=== PATIENT | female | born 1960 | race Caucasian/White ===

== ENCOUNTER 2016-08-31 05:57 | Day surgery (SDC) | payer OTHER ==
[2016-08-31] MEDS ORDERED: Lactated Ringers 1,000 ML IV SCH (06:30)
[2016-08-31] MEDS ORDERED: Versed 2 MG/2 ML Injection IV ONE (08:00)
[2016-08-31] MEDS ORDERED: Lactated Ringers 1,000 ML IV ONE (08:24)
--- NOTE | 2016-08-31 09:16 | OP ---
SURGERY DATE/TIME: 08/31/2016 0755 PREOPERATIVE DIAGNOSIS: History of colon polyps. POSTOPERATIVE DIAGNOSIS: Normal colon. PROCEDURE: Colonoscopy. SURGEON: Dewayne Thakkar M.D. ANESTHESIA: MAC by Patrick Garrett CRNA. ESTIMATED BLOOD LOSS: None. SPECIMENS: None. DESCRIPTION OF PROCEDURE: After informed written consent was obtained, the patient was taken to the endoscopy suite. She underwent monitored anesthesia and a digital rectal exam showed normal sphincter tone and no internal lesions. The scope was inserted into the rectum and sequentially the entire colonic mucosa was traversed. The level of cecum was reached and verified with direct visualization of ileocecal valve. Upon withdrawal careful mucosal inspection revealed no obvious abnormalities. Prior to withdrawal retroflexion was performed and was within normal limits. The scope was removed and the patient was transferred to the recovery room in excellent condition.
[2016-08-31 09:27] VITALS: O2SAT 99
[2016-08-31 09:30] VITALS: BP 130/70; PULSE 76
[2016-08-31] MEDS ORDERED: DIPRIVAN 200 MG/20 ML IV ONE (10:00)
== END 2016-08-31 09:45 | disposition home or self-care (01) ==
LOC: SDC 05:57
PROVIDERS: ATTEND Family Medicine
PROC: 0DJD8ZZ Inspection of Lower Intestinal Tract, Via Natural or Artificial Opening Endoscopic (ICD-10-PCS; principal; 2016-08-31)
DX: Z86.010 Personal history of colon polyps (principal)
CPT/HCPCS: 00810; J2250; J2704

== ENCOUNTER 2021-06-17 06:17 | Day surgery (SDC) | payer OTHER ==
[2021-06-17] MEDS ORDERED: Lactated Ringers 1,000 ML IV SCH (06:30)
[2021-06-17] MEDS ORDERED: Versed 2 MG/2 ML Injection ONE (08:01)
[2021-06-17] MEDS ORDERED: DIPRIVAN 200 MG/20 ML IV ONE ×2 (08:01→08:22)
[2021-06-17] MEDS ORDERED: Lactated Ringers 1,000 ML IV ONE (08:13)
[2021-06-17 09:11] VITALS: PULSE 80; O2SAT 86
[2021-06-17 09:15] VITALS: BP 115/89
--- NOTE | 2021-06-17 11:45 | OP ---
SURGERY DATE/TIME: 06/17/2021 0811 PREOPERATIVE DIAGNOSIS: Screening colonoscopy. POSTOPERATIVE DIAGNOSES: 1) Diverticulosis. 2) Mild internal hemorrhoids. PROCEDURE: Colonoscopy. SURGEON: Dewayne Thakkar M.D. ANESTHESIA: MAC by Patrick Garrett CRNA. ESTIMATED BLOOD LOSS: None. SPECIMENS: None. DESCRIPTION OF PROCEDURE: After informed written consent was obtained, the patient was taken to the endoscopy suite. She was placed in the left lateral decubitus position and anesthesia was titrated to desired level of consciousness. Digital rectal exam showed normal sphincter tone and no internal lesions. The scope was inserted into the rectum and sequentially the entire colonic mucosa was traversed. The level of cecum was reached and verified with direct visualization of the ileocecal valve. Upon withdrawal careful mucosal inspection revealed scattered diverticula but no other mucosal abnormalities. Prep was noted to be fair. Prior to withdrawal retroflexion showed mild internal hemorrhoids and no other lesions. The scope was removed. The patient was transferred to the recovery room in good condition.
== END 2021-06-17 09:05 | disposition home or self-care (01) ==
LOC: SDC 06:17
PROVIDERS: ATTEND Family Medicine
DX: Z12.11 Encounter for screening for malignant neoplasm of colon (principal); K57.30 Diverticulosis of large intestine without perforation or abscess without bleeding; K64.8 Other hemorrhoids
CPT/HCPCS: J2250; J2704

== ENCOUNTER 2022-03-24 20:29 | Emergency (ER) | payer BC, OTHER ==
--- NOTE | 2022-03-24 20:53 | ERPHSYRPT ---
- History of Present Illness Time Seen by Provider: 03/24/22 20:50 Source: patient Exam Limitations: no limitations Patient Subjective Stated Complaint: pt states I just got back from [employer] and had this terrible headache. The pain went down my neck. I check my blood pressure and it was 160 over something. Triage Nursing Assessment: pt ambulated into the er; pt is axo x4; c/o hypertension; pt states 3/10 pain to head that radiates down to neck and shoulders; no respiratory distress present; pupils 3 mm and PERRL; hypertensive; skin PDW Physician History: This is a 61-year-old white female who has a history of hypertension hypothyroidism and presents to the emergency department with a headache and elevated blood pressure at home. Patient states that she returned home from [facility] and had a forehead headache which soon worsened and traveled posteriorly and down her neck into her shoulders. She did not suffer any traumatic head injury. She took her blood pressure and the systolic blood pressure was in the 160s. The patient's pain was not resolving so she was brought to the emergency department where her initial systolic blood pressure was 158.'s patient did take some Tylenol at home and she states now that she is here and took her Tylenol, her headache is significantly improved but not com pletely resolved yet as she does not feel the pain in the neck and shoulders like she did earlier. She denies chest pain although she does state that in the last few weeks she has had intermittent mild tightness that resolved on its own in her chest. It was nonradiating and anterior on both sides of the chest. She has no shortness of breath. She has no abdominal pain. She has not had any fevers Timing/Duration: today Head Pain Location: frontal, occipital Severity of Pain-Max: moderate Severity of Pain-Current: none Recent Head Trauma: no recent headache/trauma Modifying Factors: Worsens With: exposure to light, movement, noise, position Associated Symptoms: denies symptoms Previous symptoms: no prior history Allergies/Adverse Reactions: Penicillins Allergy (Verified 03/24/22 20:38) Sulfa (Sulfonamide Antibiotics) Allergy (Verified 03/24/22 20:38) Home Medications: Levothyroxine Sodium 25 Mcg [Synthroid 25 Mcg] 25 mcg PO DAILY 11/19/13 [History] Beta-Carotene(A) W-C & E/Min [Ocuvite Tablet] 1 tab PO DAILY 06/10/21 [History] Lisinopril 5 mg [Zestril 5 MG] 5 mg PO DAILY 06/10/21 [History] Hx Tetanus, Diphtheria Vaccination/Date Given: Yes Hx Influenza Vaccination/Date Given: Yes Hx Pneumococcal Vaccination/Date Given: No Travel Risk - International Travel Have you traveled outside of the country in past 3 weeks: No - Coronavirus Screening Are you exhibiting any of the following symptoms?: No Close contact with a COVID-19 positive Pt in past 14-21 Days: No - Vaccine Status Have you recieved a Covid-19 vaccination: Yes [employer]: Moderna - Vaccination Dates Date of 2cond Vaccination (if applicable): 2019 - Review of Systems Constitutional: No Symptoms Eyes: No Symptoms Ears, Nose, & Throat: No Symptoms Respiratory: No Symptoms Cardiac: Chest Pain (Described as mild tightness that is been intermittent but does not have it at this time) Genitourinary Symptoms: No Symptoms Musculoskeletal: No Symptoms Skin: No Symptoms Neurological: Headache Psychological: No Symptoms Endocrine: No Symptoms Hematologic/Lymphatic: No Symptoms Immunological/Allergic: No Symptoms All Other Systems: Reviewed and Negative - Past Medical History Pertinent Past Medical History: Yes Neurological History: No Pertinent History ENT History: No Pertinent History Cardiac History: Hypertension Respiratory History: No Pertinent History Endocrine Medical History: Hypothyroidism Musculoskeletal History: Osteoarthritis GI Medical History: Diverticulitis, GERD History: No Pertinent History Psycho-Social History: No Pertinent History Female Reproductive Disorders: No Pertinent History Other Medical History: VACCINATED FOR COVID. 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 SX HX: HYSTERECTOMY, BREAST TUMORS REMOVED - Past Surgical History Past Surgical History: Yes Neuro Surgical History: No Pertinent History Cardiac: No Pertinent History Respiratory: No Pertinent History Gastrointestinal: No Pertinent History Genitourinary: No Pertinent History Musculoskeletal: No Pertinent History Female Surgical History: Hysterectomy, Other Other Surgical History: TONSILS, 3 BREAST TUMORS REMOVED. D&C, HALF OF THYROID REMOVED.right breast lumpectomy times 3 - Social History Smoking Status: Never smoker Exposure to second hand smoke: No Drug Use: none Patient Lives Alone: No - Nursing Vital Signs Nursing Vital Signs: Initial Vital Signs Temperature 98.4 F 02/02/23 20:39 Pulse Rate 77 03/24/22 20:39 Respiratory Rate 12 03/24/22 20:39 Blood Pressure 150/86 03/24/22 20:39 O2 Sat by Pulse Oximetry 100 03/24/22 20:39 Pain Scale Pain Intensity 0 - Physical Exam General Appearance: no apparent distress, alert, anxiety Eye Exam: PERRL/EOMI, eyes nml inspection Ears, Nose, Throat Exam: normal ENT inspection, moist mucous membranes Neck Exam: normal inspection, non-tender, supple, full range of motion Respiratory Exam: normal breath sounds, lungs clear, airway intact, No chest tenderness, No respiratory distress Cardiovascular Exam: regular rate/rhythm, normal heart sounds, normal peripheral pulses Gastrointestinal/Abdominal Exam: soft, normal bowel sounds, No tenderness Back Exam: normal inspection, normal range of motion, No CVA tenderness, No vertebral tenderness Mental Status Exam: alert, oriented x 3, 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 There is no evidence of any acute ischemic changes on today's EKG.) Ordered Tests: Active Orders 24 hr Category Date Time Status Fruit Packer Face And Fill STAT Care 03/24/22 20:55 Active EKG-ER Only STAT Care 03/24/22 20:56 Active IV Insertion STAT Care 03/24/22 20:54 Active Pulse Oximetry (ED) STAT Care 03/24/22 20:54 Active HEAD WITHOUT CONTRAST [CT] Stat Exams 03/24/22 21:14 Taken CBC W DIFF Stat Lab 03/24/22 21:10 Completed CMP Stat Lab 03/24/22 21:10 Received TROPONIN Q4H Lab 03/24/22 21:10 Completed TROPONIN Q4H Lab 03/25/22 01:00 Ordered TROPONIN Q4H Lab 03/25/22 05:00 Ordered UA W/RFX UR CULTURE Stat Lab 03/24/22 20:59 Completed Medication Summary Discontinued Medications Generic Name Dose Route Start Last Admin Trade Name Maria Fernanda PRN Reason Stop Dose Admin Enalaprilat 0.625 mg 03/24/22 20:56 Enalaprilat 2.5 Mg Injection IV 03/24/22 20:57 STAT ONE Lab/Rad Data: Laboratory Result Diagrams 03/24/22 21:10 Laboratory Results 03/24/22 03/24/22 03/24/22 Range/Units 21:10 21:10 20:59 WBC 8.4 (4.0-10.5) x10^3/uL RBC 4.13 (4.1-5.4) x10^6/uL Hgb 12.4 (12.0-16.0) g/dL Hct 38.4 (35-47) % MCV 93.0 (78-100) fL MCH 30.0 (26-32) pg MCHC 32.3 (32-36) g/dL RDW 12.4 (11.5-14.0) % Plt Count 250 (150-450) x10^3/uL MPV 10.4 (7.5-11.0) fL Gran % 36.8 (36.0-66.0) % Immature Gran % (Auto) 0.2 (0.00-0.4) % Nucleat RBC Rel Count 0.0 (0.00-0.1) % Eos # (Auto) 0.12 (0-0.5) x10^3/uL Immature Gran # (Auto) 0.02 (0.00-0.03) x10^3u/L Absolute Lymphs (auto) 4.36 (1.0-4.6) x10^3/uL Absolute Monos (auto) 0.75 (0.0-1.3) x10^3/uL Absolute Nucleated RBC 0.00 (0.00-0.01) x10^3u/L Lymphocytes % 52.1 H (24.0-44.0) % Monocytes % 9.0 (0.0-12.0) % Eosinophils % 1.4 (0.00-5.0) % Basophils % 0.5 (0.0-0.4) % Absolute Granulocytes 3.08 (1.4-6.9) x10^3/uL Basophils # 0.04 (0-0.4) x10^3/uL Troponin I < 0.012 (0.000-0.034) ng/mL Urine Color Yellow (Yellow) Urine Appearance Clear (Clear) Urine pH 5.5 (4.6-8.0) Ur Specific [place] 1.010 (1.005-1.030) Urine Protein Negative (Negative) Urine Glucose (UA) Negative (Negative) mg/dL Urine Ketones Negative (Negative) Urine Blood Trace (Negative) Urine Nitrite Negative (Negative) Urine Bilirubin Negative (Negative) Urine Urobilinogen 0.2 (0.2) mg/dL Ur Leukocyte Esterase Negative (Negative) U Hyaline Cast (Auto) NONE SEEN (0-2) /LPF Urine Microscopic RBC 0-2 (0-5) /HPF Urine Microscopic WBC 0-2 (0-5) /HPF Ur Epithelial Cells None Seen (None Seen) /HPF Urine Bacteria None Seen (None Seen) /HPF Urine Culture Reflexed NO (NO) - Progress Progress: improved, re-examined Air Movement: good Progress Note: 03/24/22 21:56 CT scan of head without contrast is a normal study. Medical decision making: This patient has medical issue that is of moderate complexity. This is based on the history that was obtained directly from the patient as well as additional history obtained from the patient's . I did review old records and old laboratory data. The work-up today in the emergency department was determined by the complaint, patient's medical history, review of her medications and allergies to medications, physical exam findings and vital signs. The work-up included CT scan of the head, blood work including troponin level, urinalysis and twelve-lead EKG. I reviewed the twelve-lead EKG on my own and reviewed the report of the CAT scan. I reexamined the patient and her symptoms have nearly completely resolved. Her vital signs are stable. Based on the above findings and work-up results, I formulated a discharge plan for the patient. This plan was discussed with the patient prior to discharge. This includes continuing her medication as prescribed. Drinking plenty of fluids, using Tylenol and ibuprofen for headache control. She is also to keep a daily log, 3 times a day, for the next 72 hours of her blood pressure. She is to follow-up with her primary care physician by phone tomorrow to make arrangements for follow-up appointment. Blood Culture(s) Obtained: No Antibiotics given: No Counseled pt/family regarding: lab results, diagnosis, need for follow-up, rad results - Departure Departure Disposition: Home Clinical Impression: Headache Condition: Stable Critical Care Time: No Referrals: MICHAEL GARCIA MD [Primary Care Provider] - Follow up/PCP as directed Additional Instructions: Drink plenty of fluids. Take your medications as prescribed. Call Dr. Garcia's office tomorrow to make arranges for follow-up appointment. Keep a daily log over the next 72 hours and jenna down your blood pressure morning noon and night (3 times a day). Take that daily log to your next appointment with your prescribing physician.
[2022-03-24] MEDS ORDERED: ENALAPRILAT 2.5 MG INJECTION IV ONE (20:56)
[2022-03-24 21:14] LABS: Absolute Neutrophil Ct (ANC) 3.08 x10^3/uL (1.4-6.9); BASOPHIL % 0.5 % (0.0-0.4); Basophil (Absolute #) 0.04 x10^3/uL (0-0.4); Eosinophil % 1.4 % (0.00-5.0); Eosinophil (Absolute #) 0.12 x10^3/uL (0-0.5); Hematocrit 38.4 % (35-47); Hemoglobin 12.4 g/dL (12.0-16.0); IMMATURE GRAN # 0.02 x10^3u/L (0.00-0.03); IMMATURE GRAN % 0.2 % (0.00-0.4); Lymphocyte (Absolute #) 4.36 x10^3/uL (1.0-4.6); Lymphocytes % 52.1 % (24.0-44.0); Mean Corpuscular Hgb Concent. 32.3 g/dL (32-36); Mean Platelet Volume 10.4 fL (7.5-11.0); Monocyte (Absolute #) 0.75 x10^3/uL (0.0-1.3); Neutrophil % 36.8 % (36.0-66.0); Platelet Count 250 x10^3/uL (150-450); Red Blood Count 4.13 x10^6/uL (4.1-5.4); Red Cell Distribution Width 12.4 % (11.5-14.0); White Blood Count 8.4 x10^3/uL (4.0-10.5)
[2022-03-24 21:30] LABS: Appearance Clear (Clear); Bacteria None Seen /HPF (None Seen); Bilirubin Negative (Negative); Blood Trace (Negative); Epithelial Cells None Seen /HPF (None Seen); Glucose, Urine Negative (Negative); Hyaline Casts NONE SEEN /LPF (0-2); Ketones Negative (Negative); Leukocyte Esterase Negative (Negative); Nitrite Negative (Negative); Ph 5.5 (4.6-8.0); Protein,Urine Dip Negative (Negative); RBC 0-2 /HPF (0-5); Urobilinogen 0.2 mg/dL (0.2); WBC 0-2 /HPF (0-5)
[2022-03-24 21:54] LABS: ADD URINE CULTURE? NO (NO)
[2022-03-24 21:57] LABS: ALBUMIN 4.5 g/dL (3.5-5.0); ALKALINE PHOSPHATASE 48 U/L (38-126); ANION GAP 9.6 MEQ/L (5-15); BLOOD UREA NITROGEN 19 mg/dL (7-17); CHLORIDE 103 mmol/L (98-107); Calcium 9.2 mg/dL (8.4-10.2); Carbon Dioxide 26 mmol/L (22-30); Creatinine 1 0.83 mg/dL (0.52-1.04); EST GLOMERULAR FILTRATION RATE > 60.0 ML/MIN; Glucose 107 mg/dL (74-106); Potassium 4.3 mmol/L (3.5-5.1); SGOT/AST 34 U/L (14-36); SGPT/ALT 17 U/L (0-35); SODIUM 134 mmol/L (137-145); Total Protein 7.2 g/dL (6.3-8.2)
[2022-03-24 22:03] VITALS: BP 131/69; PULSE 78; O2SAT 99
--- NOTE | 2022-03-25 09:04 | XRAY ---
Indication: Headache. High blood pressure. Multiple contiguous axial images obtained through the head without contrast. Comparison: November 19, 2013 Normal appearing brain parenchyma and ventricles. Bony calvarium intact. Visualized paranasal sinuses and mastoid air cells are clear. Impression: Continued normal CT head without contrast exam.
== END 2022-03-24 22:14 | disposition home or self-care (01) ==
LOC: ED 20:29
DX: R51.9 Headache, unspecified (principal); R07.9 Chest pain, unspecified; I10 Essential (primary) hypertension; Z79.899 Other long term (current) drug therapy
CPT/HCPCS: 36000; 36415; 70450; 80053; 81001; 84484; 85025; 93005; 93041; 94760; 99284

== ENCOUNTER 2023-04-27 20:01 | Emergency (ER) | payer BC ==
[2023-04-27 20:34] VITALS: TEMP 98.5
[2023-04-27] MEDS ORDERED: Sodium Chloride 0.9% 1000 ML 1,000 ML ONE (21:25)
[2023-04-27] MEDS: Sodium Chloride 0.9% 1000 ML 1,000 ML IV STA (21:26)
[2023-04-27 21:46] LABS: Absolute Neutrophil Ct (ANC) 10.81 x10^3/uL (1.4-6.9); BASOPHIL % 0.3 % (0.0-0.4); Basophil (Absolute #) 0.04 x10^3/uL (0-0.4); Eosinophil % 0.1 % (0.00-5.0); Eosinophil (Absolute #) 0.01 x10^3/uL (0-0.5); Hematocrit 35.6 % (35-47); Hemoglobin 11.4 g/dL (12.0-16.0); IMMATURE GRAN # 0.04 x10^3u/L (0.00-0.03); IMMATURE GRAN % 0.3 % (0.00-0.4); Lymphocyte (Absolute #) 1.16 x10^3/uL (1.0-4.6); Lymphocytes % 9.2 % (24.0-44.0); Mean Cell Volume 93.4 fL (78-100); Mean Corpuscular Hemoglobin 29.9 pg (26-32); Mean Platelet Volume 10.3 fL (7.5-11.0); Monocyte (Absolute #) 0.59 x10^3/uL (0.0-1.3); Monocytes % 4.7 % (0.0-12.0); Neutrophil % 85.4 % (36.0-66.0); Platelet Count 202 x10^3/uL (150-450); Red Blood Count 3.81 x10^6/uL (4.1-5.4); Red Cell Distribution Width 12.6 % (11.5-14.0); White Blood Count 12.7 x10^3/uL (4.0-10.5)
[2023-04-27 21:54] VITALS: PULSE 68
[2023-04-27 21:58] LABS: ALBUMIN 3.8 g/dL (3.5-5.0); BILIRUBIN,TOTAL 0.8 mg/dL (0.2-1.3); Calcium 8.9 mg/dL (8.4-10.2); Creatinine 1 0.61 mg/dL (0.52-1.04); EST GLOMERULAR FILTRATION RATE 102.3 ML/MIN; Potassium 3.7 mmol/L (3.5-5.1); Total Protein 6.1 g/dL (6.3-8.2)
[2023-04-27 23:07] LABS: Appearance Clear (Clear); Bacteria None Seen /HPF (None Seen); Bilirubin Negative (Negative); Blood Trace (Negative); Epithelial Cells None Seen /HPF (None Seen); Glucose, Urine Negative (Negative); Hyaline Casts NONE SEEN /LPF (0-2); Ketones Negative (Negative); Leukocyte Esterase Negative (Negative); Nitrite Negative (Negative); Ph 5.5 (4.6-8.0); Protein,Urine Dip Negative (Negative); RBC 0-2 /HPF (0-5); Specific Gravity >=1.030 (1.005-1.030); Urobilinogen 0.2 mg/dL (0.2); WBC 0-2 /HPF (0-5)
[2023-04-27 23:08] LABS: ADD URINE CULTURE? NO (NO)
[2023-04-27 23:17] VITALS: RESP 17; O2SAT 96
--- NOTE | 2023-04-27 23:23 | XRAY ---
CLINICAL HISTORY: diverticulitis/rectal bleed TECHNIQUE: CT scan of the abdomen and pelvis was performed with IV contrast. COMPARISON: Previous dated 06/17/2013. FINDINGS: Multiple diverticulae are noted in relation to large bowel loops, particularly in the sigmoid colon. Circumferential wall thickening of transverse, descending, and sigmoid colon is noted with mild pericolonic fat stranding. no collection or abscess formation is noted. Normal appendix. No evidence of bowel obstruction. The liver measures 17.5 cm. It has a normal shape with regular margins. A 8 mm simple cyst is noted in segment 3 of the liver parenchyma. No solid hepatic mass is identified. The portal vein, intrahepatic biliary radicals and the bile ducts are normal. Gall bladder appears normal with wall thickness. No radio-opaque calculus or pericholecystic fluid was identified. The common bile duct appears normal. Pancreas appears normal. No peripancreatic fat stranding, pancreatic pseudocyst or peripancreatic fluid collection. Spleen normal in size, no mass seen. Normal appendix. Both adrenal glands are unremarkable. Both kidneys are normal in size, shape and orientation. No calculi, cyst mass or hydronephrosis was seen on either side. Both ureters and urinary bladder appear normal. Stomach and small bowel loops are unremarkable. The caecum and ileocecal junction appear normal. The pelvis appears unremarkable. The uterus is not visualized, history of hysterectomy. There is no evidence of significant enlargement of the mesenteric or retroperitoneal lymph nodes. Visualized thoracic and lumbar spine show mild degenerative changes. No lytic or sclerotic bone lesions in visualized bones. Visualized lung bases are unremarkable. No pleural or pericardial effusion seen. IMPRESSION: 1. Multiple diverticulae are noted in relation to large bowel loops, particularly in sigmoid colon. Circumferential wall thickening of transverse, descending, and sigmoid colon is noted with mild pericolonic fat stranding. no collection or abscess formation is noted. No evidence of bowel obstruction. These findings are concerning for acute diverticulitis/colitis. Please correlate clinically. The inflammatory changes are an interval new finding in comparison to previous CT dated 06/18/2023. 2. Normal appendix. 3. Simple hepatic cyst in segment 2 measuring 8mm. Electronically Signed by: Deepti Mathew MD. (04/27/2023 23:19:27 EST)
[2023-04-27] MEDS ORDERED: Cipro 500 MG ONE (23:46)
--- NOTE | 2023-04-27 23:46 | ERPHSYRPT ---
- History of Present Illness Time Seen by Provider: 04/27/23 20:10 Historian: patient Exam Limitations: no limitations Patient Subjective Stated Complaint: pt states she has been having bright red blood in her stool with some clots since approx 1700 Triage Nursing Assessment: pt alert and oriented, answers questions approp. pt back to room per wheelchair and transfers to stretcher with minimal assist. respirations nonlabored. skin warm and dry. abd soft Physician History: 62 years old female with history of hypothyroidism, hypertension, diverticulitis presented in the ER with complaints of bleeding per rectal. Patient reports she donated blood and afterwards she started to have some abdominal cramping with nausea with a loose stool. She was also feeling lightheaded after donating blood. Patient reports this evening she started to have bright red blood per rectal mixed with stool. She does have history of hemorrhoids but does not think this bleeding is from hemorrhoids. She reports pain in the left lower abdomen mild in nature currently. Denies any fever or chills. Reports having similar symptoms in the past with diverticulitis. Allergies/Adverse Reactions: Penicillins Allergy (Verified 04/27/23 20:30) Sulfa (Sulfonamide Antibiotics) Allergy (Verified 04/27/23 20:30) Home Medications: Levothyroxine Sodium 25 Mcg [Synthroid 25 Mcg] 25 mcg PO DAILY 11/19/13 [History] Beta-Carotene(A) W-C & E/Min [Ocuvite Tablet] 1 tab PO DAILY 06/10/21 [History] Lisinopril 5 mg [Zestril 5 MG] 5 mg PO DAILY 06/10/21 [History] Hx Tetanus, Diphtheria Vaccination/Date Given: Yes Hx Influenza Vaccination/Date Given: No Hx Pneumococcal Vaccination/Date Given: No Immunizations Up to Date: Yes Travel Risk - International Travel Have you traveled outside of the country in past 3 weeks: No - Coronavirus Screening Are you exhibiting any of the following symptoms?: No Close contact with a COVID-19 positive Pt in past 14-21 Days: No - Vaccine Status Have you recieved a Covid-19 vaccination: Yes Engagement Director: Moderna - Vaccination Dates Date of 2cond Vaccination (if applicable): 2020 - Review of Systems Constitutional: Fatigue, Weakness Eyes: No Symptoms Ears, Nose, & Throat: No Symptoms Respiratory: No Symptoms Cardiac: No Symptoms Abdominal/Gastrointestinal: Abdominal Pain, Nausea, Diarrhea Genitourinary Symptoms: No Symptoms Musculoskeletal: No Symptoms (3) Skin: No Symptoms Neurological: Dizziness Endocrine: No Symptoms Hematologic/Lymphatic: No Symptoms Immunological/Allergic: No Symptoms - Past Medical History Pertinent Past Medical History: Yes Neurological History: No Pertinent History ENT History: No Pertinent History Cardiac History: Hypertension Respiratory History: No Pertinent History Endocrine Medical History: Hypothyroidism Musculoskeletal History: Osteoarthritis GI Medical History: Diverticulitis, GERD History: No Pertinent History Psycho-Social History: No Pertinent History Female Reproductive Disorders: No Pertinent History Other Medical History: . 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 SX HX: HYSTERECTOMY, BREAST TUMORS REMOVED - Past Surgical History Past Surgical History: Yes Neuro Surgical History: No Pertinent History Cardiac: No Pertinent History Respiratory: No Pertinent History Gastrointestinal: No Pertinent History Genitourinary: No Pertinent History Musculoskeletal: No Pertinent History Female Surgical History: Hysterectomy, Other Other Surgical History: TONSILS, 3 BREAST TUMORS REMOVED. D&C, HALF OF THYROID REMOVED.right breast lumpectomy times 3 - Social History Smoking Status: Never smoker Exposure to second hand smoke: No Drug Use: none Patient Lives Alone: No - Nursing Vital Signs Nursing Vital Signs: Initial Vital Signs Temperature 98.5 F 04/27/23 20:11 Pulse Rate 72 04/27/23 20:11 Respiratory Rate 16 04/27/23 20:11 Blood Pressure 111/65 04/27/23 20:11 O2 Sat by Pulse Oximetry 99 04/27/23 20:11 Pain Scale Pain Intensity 2 - Physical Exam General Appearance: no apparent distress, alert Eye Exam: PERRL/EOMI Ears, Nose, Throat Exam: normal ENT inspection Neck Exam: normal inspection, non-tender, supple, full range of motion Respiratory Exam: normal breath sounds, lungs clear Cardiovascular Exam: regular rate/rhythm, normal heart sounds Gastrointestinal/Abdomen Exam: soft, normal bowel sounds, tenderness (Minimal left lower quadrant tenderness) Back Exam: normal inspection, normal range of motion Extremity Exam: normal inspection, normal range of motion Neurologic Exam: alert, oriented x 3, cooperative, raftsman II-XII nml as tested Skin Exam: normal color SpO2 Interpretation: normal SpO2: 96 O2 Delivery: Room Air Ordered Tests: Active Orders 24 hr Category Date Time Status IV Insertion STAT Care 04/27/23 20:48 Active NPO (ED) STAT Care 04/27/23 20:48 Active ABDOMEN AND PELVIS W CONTRAST [CT] Stat Exams 04/27/23 22:16 Completed CBC W DIFF Stat Lab 04/27/23 21:35 Completed CMP Stat Lab 04/27/23 21:35 Completed LIPASE Stat Lab 04/27/23 21:35 Completed UA W/RFX UR CULTURE Stat Lab 04/27/23 22:56 Completed Medication Summary Discontinued Medications Generic Name Dose Route Start Last Admin Trade Name Maria Fernanda PRN Reason Stop Dose Admin Ciprofloxacin 500 mg 04/27/23 23:37 Ciprofloxacin 500 Mg Tablet PO 04/27/23 23:38 ONCE STA Sodium Chloride 1,000 mls @ 999 mls/hr 04/27/23 20:48 04/27/23 22:27 Sodium Chloride 0.9% 1000 Ml IV 04/27/23 21:48 Infused .Q1H1M STA Infusion Sodium Chloride Confirm 04/27/23 21:25 Sodium Chloride 0.9% 1000 Ml Administered 04/27/23 21:26 Dose 1,000 mls @ ud .ROUTE .STK-MED ONE Metronidazole 500 mg 04/27/23 23:37 Metronidazole 500 Mg Tablet PO 04/27/23 23:38 STAT ONE Lab/Rad Data: Laboratory Result Diagrams 04/27/23 21:35 04/27/23 21:35 Laboratory Results 04/27/23 04/27/23 04/27/23 Range/Units 22:56 21:35 21:35 WBC 12.7 H (4.0-10.5) x10^3/uL RBC 3.81 L (4.1-5.4) x10^6/uL Hgb 11.4 L (12.0-16.0) g/dL Hct 35.6 (35-47) % MCV 93.4 (78-100) fL MCH 29.9 (26-32) pg MCHC 32.0 (32-36) g/dL RDW 12.6 (11.5-14.0) % Plt Count 202 (150-450) x10^3/uL MPV 10.3 (7.5-11.0) fL Gran % 85.4 H (36.0-66.0) % Immature Gran % (Auto) 0.3 (0.00-0.4) % Nucleat RBC Rel Count 0.0 (0.00-0.1) % Eos # (Auto) 0.01 (0-0.5) x10^3/uL Immature Gran # (Auto) 0.04 H (0.00-0.03) x10^3u/L Absolute Lymphs (auto) 1.16 (1.0-4.6) x10^3/uL Absolute Monos (auto) 0.59 (0.0-1.3) x10^3/uL Absolute Nucleated RBC 0.00 (0.00-0.01) x10^3u/L Lymphocytes % 9.2 L (24.0-44.0) % Monocytes % 4.7 (0.0-12.0) % Eosinophils % 0.1 (0.00-5.0) % Basophils % 0.3 (0.0-0.4) % Absolute Granulocytes 10.81 H (1.4-6.9) x10^3/uL Basophils # 0.04 (0-0.4) x10^3/uL Sodium 136 (135-145) mmol/L Potassium 3.7 (3.5-5.1) mmol/L Chloride 104 (98-107) mmol/L Carbon Dioxide 23 (22-30) mmol/L Anion Gap 12.0 (5-15) MEQ/L BUN 16 (7-17) mg/dL Creatinine 0.61 (0.52-1.04) mg/dL Estimated GFR 102.3 ML/MIN Glucose 142 H (74-106) mg/dL Calcium 8.9 (8.4-10.2) mg/dL Total Bilirubin 0.80 (0.2-1.3) mg/dL AST 25 (14-36) U/L ALT 18 (0-35) U/L Alkaline Phosphatase 54 (38-126) U/L Serum Total Protein 6.1 L (6.3-8.2) g/dL Albumin 3.8 (3.5-5.0) g/dL Lipase 76 (23-300) U/L Urine Color Yellow (Yellow) Urine Appearance Clear (Clear) Urine pH 5.5 (4.6-8.0) Ur Specific [place] >=1.030 A (1.005-1.030) Urine Protein Negative (Negative) Urine Glucose (UA) Negative (Negative) mg/dL Urine Ketones Negative (Negative) Urine Blood Trace (Negative) Urine Nitrite Negative (Negative) Urine Bilirubin Negative (Negative) Urine Urobilinogen 0.2 (0.2) mg/dL Ur Leukocyte Esterase Negative (Negative) U Hyaline Cast (Auto) NONE SEEN (0-2) /LPF Urine Microscopic RBC 0-2 (0-5) /HPF Urine Microscopic WBC 0-2 (0-5) /HPF Ur Epithelial Cells None Seen (None Seen) /HPF Urine Bacteria None Seen (None Seen) /HPF Urine Culture Reflexed NO (NO) - Progress Progress: improved Progress Note: 04/27/23 23:47 62 years old is evaluated in the ER for abdominal pain with rectal bleeding. Patient has a history of diverticulitis. Patient donated blood earlier today and afterwards she was lightheaded. The symptoms started this evening. Patient has 2-3 episodes of loose stool with blood mixed. She has minimal tenderness on exam currently. She is given fluid bolus, on reevaluation she is feeling much better. Does not want any pain medication. Workup showed normal white count, hemoglobin of 11.3 and it was 13.9 per her before transfusion. Chemistries fairly unremarkable. CT abdomen pelvis showed transverse and descending/sigmoid colon wall thickening suggestive of colitis and also some element of diverticulitis. I have offered her admission with IV antibiotics but patient does not want to stay in the hospital at all. Patient states "I have been through this numerous time and I would like to go home". She is started on Cipro and Flagyl. Recommended taking Tylenol and outpatient follow-up. Also to take dietary precautions. Discussed signs symptoms of worsening needing return to ER which she seems understanding. Stable for discharge. Counseled pt/family regarding: lab results, diagnosis, need for follow-up, rad results Medical Desision Making - Diagnostic Testing Diagnostic test were ordered, analyzed, and reviewed by me: Yes Radiological Interpretation: Reviewed by me - Risk of complications The pt has a mod risk of morbidity or mortality based on: Need for prescription drug management - Departure Departure Disposition: Home Clinical Impression: Infectious colitis, Diverticulitis Condition: Stable Critical Care Time: No Referrals: MICHAEL GRACIA MD [Primary Care Provider] - Follow up with PCP 1 day Instructions: Diverticulitis (DC) Additional Instructions: Follow-up with primary care for reevaluation. Return to ER for any worsening of abdominal pain/rectal bleeding, feeling dizzy lightheaded etc. Prescriptions: Ciprofloxacin [Cipro 500 MG] 500 mg PO BID #14 tablet Metronidazole 500 mg [Flagyl 500 MG] 500 mg PO TID #21 tablet
[2023-04-27] MEDS ORDERED: Flagyl 500 MG ONE (23:47)
[2023-04-27] MEDS: Cipro 500 MG PO STA (23:50)
[2023-04-27] MEDS: Flagyl 500 MG PO ONE (23:50)
[2023-04-28 00:44] VITALS: BP 132/71
== END 2023-04-28 00:38 | disposition home or self-care (01) ==
LOC: ED 20:01
DX: A09 Infectious gastroenteritis and colitis, unspecified (principal); K92.1 Melena; E03.9 Hypothyroidism, unspecified; I10 Essential (primary) hypertension; K57.30 Diverticulosis of large intestine without perforation or abscess without bleeding; R42 Dizziness and giddiness; Z87.19 Personal history of other diseases of the digestive system
CPT/HCPCS: 36000; 36415; 74177; 80053; 81001; 83690; 85025; 99284; A9270-GY